=== PATIENT | male | born 1955 | race Caucasian/White ===

== ENCOUNTER 2018-01-25 11:02 | Emergency (ER) | payer MEDICAID, OTHER, SELFPAY ==
[~2018-01-25] VITALS: Ht 172.7 cm; Wt 100.0 kg
[~2018-01-25 11:02] MED LIST: GABA-531 PO; LEVO25TA9 PO; LOSA50TA25 PO; LOVA20 PO; METF500T7 PO; SERT50TA12 PO
[2018-01-25] MEDS ORDERED: GLIP5 PO (11:08)
[2018-01-25] MEDS ORDERED: ASPI-556 PO (11:08)
[2018-01-25] MEDS ORDERED: INSLAN SQ (11:08)
[2018-01-25 11:13] LABS: GLUCOSE,POINT OF CARE 210 MG/DL (70-110)
[2018-01-25] MEDS ORDERED: SODIUM CHLORIDE 0.9% 1,000 ML IV ONE (12:00)
[2018-01-25] MEDS ORDERED: MORPHINE SULFATE 4 MG/ML SYRINGE IVP ONE (12:00)
[2018-01-25 12:28] LABS: BASOPHILS % (AUTO) 0.3 % (0.0-2.0); HEMATOCRIT 45.4 % (41-53); HEMOGLOBIN 15.5 g/dL (13.5-17.5); LYMPHOCYTES # (AUTO) 1.4 K/uL (1.0-4.8); LYMPHOCYTES % (AUTO) 23.6 % (22.0-44.0); MEAN CORPUSCULAR HEMOGLOBIN 30.6 pg (26.0-34.0); MEAN CORPUSCULAR HGB CONC 34.1 G/dL (31.0-37.0); MEAN CORPUSCULAR VOLUME 90 fL (80-100); MONOCYTES # (AUTO) 0.6 K/uL (0.1-1.0); MONOCYTES % (AUTO) 9.1 % (2.0-9.0); PLATELET COUNT (AUTO) 224 K/uL (150-450); RED BLOOD CELL COUNT(AUTO) 5.05 MIL/uL (4.50-5.90); RED CELL DISTRIBUTION WIDTH 12.5 % (11.5-14.5)
[2018-01-25 12:39] LABS: ANION GAP 9 mmol/L (8-16); CALCIUM, TOTAL 9.2 mg/dL (8.8-10.5); CARBON DIOXIDE 28 mmol/L (22-29); CHLORIDE 100 mmol/L (98-107); CREATININE 0.75 mg/dL (0.60-1.30); GLOMERULAR FILTR. RATE CALC > 60 mL/min (>60); GLUCOSE,RANDOM 183 mg/dL (70-110); POTASSIUM 4.2 mmol/L (3.5-5.1); SODIUM SERUM 137 mmol/L (136-145); UREA NITROGEN, BLOOD 11 mg/dL (7-18)
[2018-01-25 12:40] LABS: APPEARANCE,URINE CLEAR (CLEAR); BILIRUBIN,URINE NEGATIVE (NEGATIVE); GLUCOSE, URINE (UA) NEGATIVE (NEGATIVE); KETONES,URINE NEGATIVE (NEGATIVE); LEUKOCYTE ESTERASE ,URINE NEGATIVE (NEGATIVE); NITRATE,URINE NEGATIVE (NEGATIVE); OCCULT BLOOD,URINE NEGATIVE (NEGATIVE); PROTEIN,URINE NEGATIVE (NEGATIVE); UROBILINOGEN,URINE 0.2 mg/dL (<=1.0)
[2018-01-25 12:46] LABS: ALANINE AMINOTRANSFERASE 26 U/L (12-78); ALBUMIN 3.7 g/dL (3.4-5.0); ALKALINE PHOSPHATASE 70 U/L (46-116); ASPARTATE AMINOTRANSFERASE 14 U/L (15-37); BILIRUBIN,TOTAL 0.4 mg/dL (0.1-1.0); LIPASE 292 U/L (73-393); TOTAL PROTEIN, SERUM 7.8 g/dL (6.4-8.2)
[2018-01-25 14:18] VITALS: BP 126/79
== END 2018-01-25 14:36 | disposition home or self-care (01) ==
LOC: EMS 11:04
DX: R10.32 Left lower quadrant pain (principal); E11.9 Type 2 diabetes mellitus without complications; E78.00 Pure hypercholesterolemia, unspecified; I10 Essential (primary) hypertension; E03.9 Hypothyroidism, unspecified; G89.29 Other chronic pain; Z79.4 Long term (current) use of insulin; Z79.82 Long term (current) use of aspirin; Z79.84 Long term (current) use of oral hypoglycemic drugs
CPT/HCPCS: 36415; 71045; 74176; 80053; 81003; 82962; 83690; 84484; 85025; 93005; 96374; 99285; J2270; J7030